=== PATIENT | female | born 1950 | race African-American/Black ===

== ENCOUNTER 2016-04-10 09:15 | Outpatient (CLI) | payer MEDICARE, OTHER ==
[2016-04-10 10:40] LABS: ALT (SGPT) 25 U/L (0-55); AST (SGOT) 34 U/L (5-34); Alkaline Phosphatase 143 U/L (40-150); Anion Gap 13 mmol/L (10-20); BUN (Urea Nitrogen) 21 mg/dL (9.8-20.1); Bilirubin, Total 1.2 mg/dL (0.2-1.2); Calc. Creatinine Clearance 0 mL/min (70-130); Calcium 9.3 mg/dL (7.8-10.44); Carbon Dioxide 26 mmol/L (23-31); Chloride 106 mmol/L (98-107); Estimated GFR-MDRD 63; Globulin 4.2 g/dL (2.4-3.5); LDL Cholesterol, Calculated 152 mg/dL; Protein, Total 7.9 g/dL (5.8-8.1)
[2016-04-10 11:10] LABS: Hematocrit 37.5 % (36.0-47.0); Mean Platelet Volume 11.7 fL (7.4-10.4); Red Blood Cell (RBC) Count 3.56 mill/uL (4.20-5.40); White Blood Cell (WBC) Count 3.2 thou/uL (4.8-10.8)
[2016-04-10 11:11] LABS: Anisocytosis SLIGHT = 6-15 cells (100X) (0-5/hpf); Band 2 % (5-11); Macrocytosis SLIGHT = 6-15 cells (100X) (0-5/hpf); Neutrophil 43 % (42-75)
== END 2016-04-10 09:16 | disposition home or self-care (01) ==
LOC: NAVSJIPCSP 09:15 → NAV LAB 09:16
PROVIDERS: ATTEND Internal Medicine
DX: E78.5 Hyperlipidemia, unspecified (principal); I11.9 Hypertensive heart disease without heart failure
CPT/HCPCS: 36415; 80053; 80061; 85025

== ENCOUNTER 2016-07-09 10:20 | Outpatient (CLI) | payer MEDICARE, OTHER ==
[2016-07-09 13:21] LABS: ALT (SGPT) 12 U/L (0-55); AST (SGOT) 21 U/L (5-34); Albumin 3.6 g/dL (3.4-4.8); Alkaline Phosphatase 125 U/L (40-150); Anion Gap 14 mmol/L (10-20); BUN (Urea Nitrogen) 19 mg/dL (9.8-20.1); Bilirubin, Total 0.6 mg/dL (0.2-1.2); Calc. Creatinine Clearance 0 mL/min (70-130); Calcium 9.3 mg/dL (7.8-10.44); Carbon Dioxide 26 mmol/L (23-31); Cardiac Risk 3.7 (Less than 4.5); Chloride 106 mmol/L (98-107); Cholesterol 244 mg/dL (< 200 Desired); Estimated GFR-MDRD 64; Glucose 75 mg/dL (80-115); HDL Cholesterol 66 mg/dL (>60 Neg Risk); LDL Cholesterol, Calculated 160 mg/dL; Potassium 4.2 mmol/L (3.5-5.1); Protein, Total 7.6 g/dL (5.8-8.1); Sodium 142 mmol/L (136-145); Triglycerides 91 mg/dL (Less than 150)
[2016-07-09 14:39] LABS: #Lymphocytes 1.5 thou/uL (1.20-3.40); #Monocytes 0.4 thou/uL (0.11-0.59); #Neutrophils 2.3 thou/uL (1.40-6.50); %Eosinophils 0.6 % (0.0-10.0); %Lymphocytes 35.6 % (21.0-51.0); %Neutrophils 52.8 % (42.0-75.0); Hemoglobin 11.7 g/dL (12.0-16.0); Mean Corpuscular Hemoglobin 33.3 pg (27.0-31.0); Mean Platelet Volume 6.9 fL (7.4-10.4); Platelet Count 192 thou/uL (130-400); RBC Distribution Width 14.1 % (11.5-14.5); Red Blood Cell (RBC) Count 3.52 mill/uL (4.20-5.40); White Blood Cell (WBC) Count 4.3 thou/uL (4.8-10.8)
== END 2016-07-09 10:21 | disposition home or self-care (01) ==
LOC: NAVSJIPCSP 10:20
PROVIDERS: ATTEND Internal Medicine
DX: I11.9 Hypertensive heart disease without heart failure (principal); E78.5 Hyperlipidemia, unspecified
CPT/HCPCS: 36415; 80053; 80061; 85025

== ENCOUNTER 2016-09-17 09:32 | Outpatient (CLI) | payer MEDICARE, OTHER | END 2016-09-17 09:33 | disposition home or self-care (01) | LOC: NAV LAB 09:32 | PROVIDERS: ATTEND Internal Medicine Hematology & Oncology | DX: C18.7 Malignant neoplasm of sigmoid colon (principal); C78.7 Secondary malignant neoplasm of liver and intrahepatic bile duct; R11.2 Nausea with vomiting, unspecified | CPT/HCPCS: 36415; 82565 ==

== ENCOUNTER 2016-09-18 08:24 | Outpatient (CLI) | payer MEDICARE, OTHER ==
--- NOTE | 2016-09-18 11:22 | CT ---
CT ABDOMEN AND PELVIS WITH ORAL AND IV CONTRAST: HISTORY: Cancer with liver mets. COMPARISON: CT abdomen and pelvis of 12/03/[address] of 04/14/16. FINDINGS: Lung nodules in the lung bases are stable. No pleural effusions are seen. The large right hepatic lobe mass measures 12.4 cm (AP) x 9.7 cm (transverse) x 11.2 cm (CC). This measured 13.3 x 9.7 x 10 cm on the previous study. No new liver masses are seen. Biliary stent and mild pneumobilia are stable. Periportal lymphadenopathy is again noted with the index aortocaval l ymph node currently measuring 3.1 cm (previously 2.9 cm). The spleen, pancreas, and adrenal glands are normal. Low-density lesion, likely cyst, in the left k idney is stable. Mass effect by the right hepatic lobe mass on the anterior right renal cortex is s table. No right-sided renal mass is seen. No urinary tract obstruction is noted. No free air or free fluid is seen in the abdomen or pelvis. There are vascular calcifications witho ut evidence of aneurysmal dilatation of the abdominal aorta. A fibroid uterus is redemonstrated. 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 No osteoblastic or osteolytic lesions are otherwise seen. IMPRESSION: Liver, lung, and periportal lymph jada metastases with minimal changes. No new metastatic lesions a re identified. POS: [facility]
== END 2016-09-18 08:25 | disposition home or self-care (01) ==
LOC: NAV CT 08:24
PROVIDERS: ATTEND Internal Medicine Hematology & Oncology
DX: C78.7 Secondary malignant neoplasm of liver and intrahepatic bile duct (principal); C78.00 Secondary malignant neoplasm of unspecified lung; C77.9 Secondary and unspecified malignant neoplasm of lymph node, unspecified; Z85.038 Personal history of other malignant neoplasm of large intestine
CPT/HCPCS: 74177

== ENCOUNTER 2016-09-23 08:28 | Outpatient (CLI) | payer MEDICARE, OTHER ==
[2016-09-23 12:31] LABS: Cardiac Risk 3.2 (Less than 4.5)
[2016-09-23 18:21] LABS: Hep C IgG Ab Non-Reactive (NonReactive); Hep C Index 0.18 S/CO (0-0.79)
== END 2016-09-23 08:29 | disposition home or self-care (01) ==
LOC: NAVSJIPCSP 08:28
PROVIDERS: ATTEND Internal Medicine
DX: E78.5 Hyperlipidemia, unspecified (principal)
CPT/HCPCS: 36415; 80061; 86803

== ENCOUNTER 2017-01-27 09:00 | Outpatient (CLI) | payer MEDICARE, OTHER ==
--- NOTE | 2017-01-27 10:42 | CT ---
CT ABDOMEN AND PELVIS WITH CONTRAST: HISTORY: Colon cancer with known liver metastases. COMPARISON: Recent CT from 09/18/2016. TECHNIQUE: Multiple axial tomograms obtained through the abdomen and pelvis with IV enhancement, performed in t he portal venous phase. Oral contrast was given. FINDINGS: Images through the lung bases again show numerous small lung nodules, with the largest seen in the a nterior right lower lung, measuring approximately 1.2 cm. These lung nodules appear unchanged in si ze and number. Review of the liver again shows a large, heterogeneous mass involving the right lobe of the liver. This mass is slightly increased in size when compared to 09/18/2016. On axial images, total AP dime nsion today is recorded at approximately 14 cm, whereas previous AP dimension was recorded at approx imately 12 cm. Width today is recorded at 11 cm, with prior width recorded at approximately 9 to 10 cm. Pneumobilia is again noted. Biliary stent is again seen. Adenopathy in the portal caval region is a gain seen and does not appear significantly changed, continuing to measure up to 2.7 to 3 cm. Toney hepatis adenopathy appears stable. Spleen and pancreas are unremarkable. Kidneys are unremarkable. Adrenal glands are unremarkable. Bowel loops are unremarkable. Images through the pelvis again show a large calcified fibroid in the uterus, to the left of midline . Aorta is of normal caliber. Osseous structures are unremarkable. IMPRESSION: 1. Slight enlargement of the large mass involving the right lobe of the liver, when compared to the exam of 09/18/2016. 2. The toney hepatis and toney caval adenopathy appears stable. POS: [facility]
== END 2017-01-27 09:01 | disposition home or self-care (01) ==
LOC: NAV CT 09:00
PROVIDERS: ATTEND Internal Medicine Hematology & Oncology
DX: C78.7 Secondary malignant neoplasm of liver and intrahepatic bile duct (principal); R11.2 Nausea with vomiting, unspecified; Z85.038 Personal history of other malignant neoplasm of large intestine
CPT/HCPCS: 74177

== ENCOUNTER 2017-02-26 19:23 | Emergency (ER) | payer MEDICARE, OTHER ==
[2017-02-26 20:24] LABS: Hemoglobin 9.4 g/dL (12.0-16.0); Mean Corpuscular HGB CONC 31.1 g/dL (32.0-36.0); Mean Corpuscular Hemoglobin 31.5 pg (27.0-31.0); Mean Platelet Volume 9.8 fL (7.4-10.4); Platelet Count 254 thou/uL (130-400); RBC Distribution Width 13.7 % (11.5-14.5); Red Blood Cell (RBC) Count 2.99 mill/uL (4.20-5.40); White Blood Cell (WBC) Count 17.5 thou/uL (4.8-10.8)
[2017-02-26] MEDS ORDERED: Piperacillin/Tazobactam 3.375 GM VIAL ONE (20:24)
[2017-02-26] MEDS ORDERED: Acetaminophen 500 MG TAB ONE (20:24)
[2017-02-26] MEDS ORDERED: Sodium Chloride 0.9% 1,000 ML ONE (20:24)
[2017-02-26 20:28] LABS: ALT (SGPT) 18 U/L (8-55); AST (SGOT) 63 U/L (5-34); Alkaline Phosphatase 246 U/L (40-150); Anion Gap 17 mmol/L (10-20); BUN (Urea Nitrogen) 29 mg/dL (9.8-20.1); Bilirubin, Total 1.9 mg/dL (0.2-1.2); Calc. Creatinine Clearance 0 mL/min (70-130); Calcium 9.4 mg/dL (7.8-10.44); Carbon Dioxide 23 mmol/L (23-31); Chloride 100 mmol/L (98-107); Estimated GFR-MDRD 41; Globulin 4.7 g/dL (2.4-3.5); Glucose 95 mg/dL (80-115); Protein, Total 7.7 g/dL (6.0-8.3); Sodium 137 mmol/L (136-145)
[2017-02-26 20:36] LABS: Bilirubin Moderate (Negative); Blood, Urine Trace (Negative); Clarity Clear (Clear); Glucose, Urine (Dipstick) Negative (Negative); Leukocyte Negative (Negative); Nitrite Negative (Negative); Protein, Urine (Dipstick) 100 mg/dL (Neg-Trace); pH, Urine 5.5 (5.0-9.0)
[2017-02-26] MEDS ORDERED: Sodium Chloride 0.9% 100 ML ONE (20:36)
[2017-02-26 20:39] LABS: Potassium 2.7 mmol/L (3.5-5.1)
[2017-02-26 20:45] LABS: Band 1 % (5-11); Eosinophils 2 % (0-10); Hypochromia SLIGHT = 6-15 cells (100X) (0-5/hpf); Lymphocytes 7 % (21-51); MDiff Complete? YES; Macrocytosis SLIGHT = 6-15 cells (100X) (0-5/hpf); Monocytes 8 % (0-10); Neutrophil 82 % (42-75); PLT Morphology Comment Appears Adequate
[2017-02-26 20:51] LABS: Bacteria/HPF Rare-Few HPF (None Seen); Other Casts/LPF 0-3 FINELY GRAN LPF (0-3 Hyaline); RBC/HPF 0-3 HPF (0-3); WBC/HPF 0-3 HPF (0-3)
[2017-02-26 20:52] LABS: Renal Epithelial 0-3 HPF (0-3)
[2017-02-26] MEDS ORDERED: Potassium Chloride 20 MEQ TAB ONE ×2 (20:59)
[2017-02-26] MEDS ORDERED: Sodium Chloride 0.9% 250 ML 250 ML ONE (21:56)
--- NOTE | 2017-02-26 22:13 | RAD ---
AP VIEW OF THE CHEST 02/26/17 INDICATION: Dry cough. COMPARISON: Prior exam dated 07/09/15. IMPRESSION: Chronic lung changes are stable. Right subclavian chest wall port is unchanged. No acute air space op acity, pleural effusion, or pneumothorax is evident. Chronic osseous changes are similar to the josh rison, 07/09/15. POS: [facility]
== END 2017-02-26 23:03 | disposition short-term general hospital (02) ==
LOC: NAV ERS 19:23
DX: D72.829 Elevated white blood cell count, unspecified (principal); C18.9 Malignant neoplasm of colon, unspecified; E78.5 Hyperlipidemia, unspecified; I10 Essential (primary) hypertension; Z79.899 Other long term (current) drug therapy
CPT/HCPCS: 51701; 71010; 80053; 81003; 81015; 83605; 85025; 87040; 87077; 87086; 87149; 87186; 96361; 96365; A4353; J2543; J3370; J7050

== ENCOUNTER 2017-03-23 10:29 | Emergency (ER) | payer MEDICARE, OTHER ==
[2017-03-23 11:19] LABS: Bilirubin Small (Negative); Blood, Urine Trace (Negative); Clarity Cloudy (Clear); Glucose, Urine (Dipstick) Negative (Negative); Leukocyte Negative (Negative); Nitrite Negative (Negative); Protein, Urine (Dipstick) 100 mg/dL (Neg-Trace); Specific Gravity, Urine 1.025 (1.005-1.030); pH, Urine 5.5 (5.0-9.0)
[2017-03-23 11:26] LABS: Bacteria/HPF 2+ HPF (None Seen); RBC/HPF 0-3 HPF (0-3)
[2017-03-23 11:26] LABS: #Basophils 0.1 thou/uL (0.0-0.2); #Lymphocytes 1.6 thou/uL (1.20-3.40); #Monocytes 1.5 thou/uL (0.11-0.59); #Neutrophils 9.4 thou/uL (1.40-6.50); %Basophils 0.4 % (0.0-1.0); %Eosinophils 0.2 % (0.0-10.0); %Lymphocytes 12.4 % (21.0-51.0); %Monocytes 12.2 % (0.0-10.0); %Neutrophils 74.8 % (42.0-75.0); Hemoglobin 9.1 g/dL (12.0-16.0); Mean Corpuscular HGB CONC 30.8 g/dL (32.0-36.0); Mean Corpuscular Hemoglobin 29.4 pg (27.0-31.0); Mean Corpuscular Volume 95.7 fl (81.0-99.0); Mean Platelet Volume 9.3 fL (7.4-10.4); Platelet Count 311 thou/uL (130-400); White Blood Cell (WBC) Count 12.6 thou/uL (4.8-10.8)
[2017-03-23 11:35] LABS: ALT (SGPT) 39 U/L (8-55); AST (SGOT) 170 U/L (5-34); Albumin 2.6 g/dL (3.4-4.8); Alkaline Phosphatase 382 U/L (40-150); Anion Gap 22 mmol/L (10-20); BUN (Urea Nitrogen) 52 mg/dL (9.8-20.1); Bilirubin, Total 1.5 mg/dL (0.2-1.2); Calc. Creatinine Clearance 0 mL/min (70-130); Calcium 9.3 mg/dL (7.8-10.44); Carbon Dioxide 15 mmol/L (23-31); Chloride 104 mmol/L (98-107); Estimated GFR-MDRD 23; Globulin 5.5 g/dL (2.4-3.5); Glucose 80 mg/dL (80-115); Potassium 3.6 mmol/L (3.5-5.1); Protein, Total 8.1 g/dL (6.0-8.3); Sodium 137 mmol/L (136-145)
[2017-03-23] MEDS ORDERED: Nitrofurantoin Macrocrystal 50 MG CAP ONE (11:48)
[2017-03-23] MEDS ORDERED: Acetaminophen 500 MG TAB ONE (11:48)
[2017-03-23] MEDS ORDERED: cefTRIAXone\\ROCEPHIN 1 GM VIAL ONE (12:31)
[2017-03-23] MEDS ORDERED: Sodium Chloride 0.9% 100 ML ONE (12:31)
[2017-03-23] MEDS ORDERED: Sodium Chloride 0.9% 2,000 ML ONE (12:31)
== END 2017-03-23 14:00 | disposition short-term general hospital (02) ==
LOC: NAV ERS 10:29
DX: N39.0 Urinary tract infection, site not specified (principal); E86.0 Dehydration; N19 Unspecified kidney failure; E78.5 Hyperlipidemia, unspecified; I11.0 Hypertensive heart disease with heart failure; Z85.038 Personal history of other malignant neoplasm of large intestine; Z79.899 Other long term (current) drug therapy
CPT/HCPCS: 36415; 80053; 81003; 81015; 85025; 87086; 93005; 96361; 96365; J0696; J7050

== ENCOUNTER 2017-03-26 11:18 | Emergency (ER) | payer MEDICARE, OTHER ==
[2017-03-26] MEDS ORDERED: Bacitracin Zinc 1 Packet ONE (12:28)
--- NOTE | 2017-03-26 12:36 | CT ---
CT BRAIN WITHOUT CONTRAST: HISTORY: Fell and hit back of head on concrete without loss of consciousness. Small laceration to the crown o f the head. Head injury. FINDINGS: No evidence of acute infarct, hemorrhage, midline shift, or abnormal extraaxial fluid collections are seen. The ventricle size is normal, and the basilar cisterns are patent. The bony calvarium is int act. The visualized paranasal sinuses and mastoid air cells are well-aerated. A small scalp hematoma is seen in the left parietal region. IMPRESSION: No CT evidence of acute intracranial process. POS: [facility]
== END 2017-03-26 12:36 | disposition home or self-care (01) ==
LOC: NAV ERS 11:18
DX: S00.83XA Contusion of other part of head, initial encounter (principal); E78.5 Hyperlipidemia, unspecified; I10 Essential (primary) hypertension; Z79.899 Other long term (current) drug therapy; W01.198A Fall on same level from slipping, tripping and stumbling with subsequent striking against other object, initial encounter
CPT/HCPCS: 70450

== ENCOUNTER 2017-04-03 20:57 | Emergency (ER) | payer MEDICARE, OTHER ==
--- NOTE | 2017-04-03 21:45 | RAD ---
ABDOMEN TWO VIEW 04/03/17 HISTORY: Constipation and distention. COMPARISON: None. FINDINGS: The upright view shows no free air under the hemidiaphragms. Vascular stent projects over the midline abdomen. Likely ingested body in the left lower quadrant abd omen. Multiple calcified fibroids. No evidence for bowel obstruction. IMPRESSION: No evidence for bowel obstruction. Of note, there is no chest radiograph on this exam. POS: [facility]
[2017-04-03 21:55] LABS: #Lymphocytes 0.8 thou/uL (1.20-3.40); #Neutrophils 9.2 thou/uL (1.40-6.50); %Eosinophils 0.1 % (0.0-10.0); %Lymphocytes 8.2 % (21.0-51.0); %Monocytes 0.2 % (0.0-10.0); %Neutrophils 91.5 % (42.0-75.0); Hemoglobin 8.9 g/dL (12.0-16.0); Mean Corpuscular Hemoglobin 29.2 pg (27.0-31.0); Mean Corpuscular Volume 97.3 fl (81.0-99.0); Mean Platelet Volume 10.8 fL (7.4-10.4); PLT Morphology Comment Appears Adequate; Platelet Count 217 thou/uL (130-400); RBC Distribution Width 17.6 % (11.5-14.5); RBC Morphology Normal; Red Blood Cell (RBC) Count 3.04 mill/uL (4.20-5.40); White Blood Cell (WBC) Count 10.1 thou/uL (4.8-10.8)
[2017-04-03 21:57] LABS: MDiff Complete? YES; Manual Diff?? NO
[2017-04-03] MEDS ORDERED: Sodium Chloride 0.9% 1,000 ML ONE ×2 (22:06→23:12)
[2017-04-03 22:07] LABS: ALT (SGPT) 171 U/L (8-55); AST (SGOT) 725 U/L (5-34); Albumin 2.4 g/dL (3.4-4.8); Alkaline Phosphatase 664 U/L (40-150); Anion Gap 26 mmol/L (10-20); BUN (Urea Nitrogen) 67 mg/dL (9.8-20.1); Bilirubin, Total 8.8 mg/dL (0.2-1.2); Calc. Creatinine Clearance 0 mL/min (70-130); Calcium 9.1 mg/dL (7.8-10.44); Carbon Dioxide 13 mmol/L (23-31); Chloride 109 mmol/L (98-107); Estimated GFR-MDRD 41; Globulin 4.6 g/dL (2.4-3.5); Glucose 74 mg/dL (80-115); Potassium 3.8 mmol/L (3.5-5.1); Sodium 144 mmol/L (136-145)
[2017-04-03 22:08] LABS: Troponin I 0.012 ng/mL (< 0.028)
[2017-04-03] MEDS ORDERED: Mineral Oil ENEMA ONE ×2 (22:08→22:09)
[2017-04-03 22:11] LABS: CKMB 26.9 ng/mL (0-6.6)
--- NOTE | 2017-04-03 22:11 | RAD ---
CHEST ONE VIEW 04/03/17 HISTORY: Pain. COMPARISON: Chest radiograph 03/23/17. FINDINGS: Port-A-Cath is in place with tip in good position. There is new linear markings on the right middle l obe. There is a small right pleural effusion. The left lung is clear. There is a nodule projecting over the right upper lobe measuring approximately 7 mm. IMPRESSION: 1. 7 mm nodule right upper lobe concerning for neoplasm. 2. New volume loss right middle and right lower lobes with layering pleural effusion. Followup C T of the chest nonemergent may be beneficial. CODE: Lung nodule POS: [facility]
[2017-04-03] MEDS ORDERED: cefTRIAXone\\ROCEPHIN 1 GM VIAL ONE (23:47)
[2017-04-04 00:16] LABS: Bilirubin Small (Negative); Blood, Urine Trace (Negative); Clarity Clear (Clear); Glucose, Urine (Dipstick) Negative (Negative); Leukocyte Negative (Negative); Nitrite Negative (Negative); Protein, Urine (Dipstick) 30 mg/dL (Neg-Trace); Specific Gravity, Urine 1.015 (1.005-1.030)
[2017-04-04 00:17] LABS: Bacteria/HPF None Seen HPF (None Seen); WBC/HPF None Seen HPF (0-3)
== END 2017-04-04 00:54 | disposition short-term general hospital (02) ==
LOC: NAV ERS 20:57
DX: E80.6 Other disorders of bilirubin metabolism (principal); D64.9 Anemia, unspecified; E87.2 Acidosis; C18.9 Malignant neoplasm of colon, unspecified; E78.5 Hyperlipidemia, unspecified; I10 Essential (primary) hypertension; Z79.899 Other long term (current) drug therapy
CPT/HCPCS: 36415; 71045; 74019; 80053; 81003; 81015; 82553; 83605; 84484; 85025; 87040; 87086; 93005; 96361; 96374; J0696; J7050